=== PATIENT | female | born 1995 | race Caucasian/White ===

== ENCOUNTER 2017-10-25 17:05 | Emergency (ER) | payer SELFPAY ==
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
[2017-10-25] MEDS ORDERED: KETOROLAC 60 MG/2 ML VIAL IM STA (17:44)
== END 2017-10-25 18:22 | disposition home or self-care (01) ==
LOC: ER 17:05
DX: S16.1XXD Strain of muscle, fascia and tendon at neck level, subsequent encounter (principal); S23.3XXD Sprain of ligaments of thoracic spine, subsequent encounter; G44.209 Tension-type headache, unspecified, not intractable; H53.149 Visual discomfort, unspecified; V47.0XXA Car driver injured in collision with fixed or stationary object in nontraffic accident, initial encounter
CPT/HCPCS: 96372; 99283; J1885